=== PATIENT | female | born 1950 | race Caucasian/White ===

== ENCOUNTER 2020-08-07 18:10 | Inpatient (IN) | payer MEDICARE ==
[~2020-08-07] VITALS: Ht 165.1 cm; Wt 59.4 kg
--- NOTE | 2020-08-07 18:49 | PHYS DOC ---
Past Medical History Past Medical History: Depression, High Cholesterol Additional Past Surgical Histo: Breast augmentation Smoking Status: Former Smoker Alcohol Use: Occasionally (wine with dinner) Drug Use: None General Adult EDM: Chief Complaint: HIP PAIN HPI: HPI: 69-year-old female presents via EMS with report of right leg pain after mechanical trip and fall over a "saw ". Patient reports she had her hands up and ended up catching both her feet on the side of the saw causing her to fall onto her right side. Patient reports pain primarily with range of motion of her right hip. Denies head trauma or neck pain. Denies use of blood thinners. Denies other injury or pain. EMS was called to the scene and reports giving 50 mcg of fentanyl along with 4 mg of Zofran prior to arrival. Review of Systems: Review of Systems: Constitutional: Denies fever or chills Eyes: Denies redness or eye pain HENT: Denies nasal congestion or sore throat Respiratory: Denies cough or shortness of breath Cardiovascular: Denies chest pain or palpitations GI: Denies abdominal pain, nausea, or vomiting : Denies dysuria or hematuria Musculoskeletal: Denies back pain; reports right leg pain Integument: Denies rash or skin lesions Neurologic: Denies headache, focal weakness or sensory changes Complete systems were reviewed and found to be within normal limits, except as documented in this note. Physical Exam: PE: Constitutional: Well developed, well nourished, no acute distress, non-toxic appearance HENT: Normocephalic, atraumatic Eyes: PERRL, EOMI, conjunctiva normal, no discharge Neck: Normal range of motion, no midline tenderness, supple Lungs & Thorax: No respiratory distress, equal chest rise and fall Abdomen: Soft, no tenderness; pelvis stable and nontender Skin: Warm, dry, no erythema, no rash Back: No tenderness, no CVA tenderness Extremities: Right trochanteric tenderness and with any ROM of right hip, no deformity, no edema, bilateral DP and PTs +2 Neurologic: Alert and oriented X 3, normal motor function, normal sensory function, no focal deficits noted Psychologic: Affect normal, judgment normal EKG: EKG: @1928 NSR at 78bpm, NO ST elevation, occasional PVC, QRS 100ms, QT/QTc 410 / 471ms Radiology/Procedures: Radiology/Procedures: PROCEDURE: HIP RIGHT 2V WITH PELVIS EXAM: AP pelvis, AP and crosstable lateral views right hip DATE: 08/07/2020 6:50 PM INDICATION: Reason: pain s/p fall / Spl. Instructions: / History: COMPARISON: No Prior FINDINGS/ IMPRESSION: 1. Intertrochanteric fracture of the right hip is nondisplaced. 2. Marked osteopenia. 3. No definite pelvic or left hip fracture is seen. 4. Large volume rectal and colonic stool content and gas limits evaluation of the sacrum. Electronically signed by: Estevan Echevarria MD (08/07/2020 7:46 PM) SHIRLENE PROCEDURE: KNEE RIGHT 3V EXAM: 3 views right knee DATE: 08/07/2020 6:50 PM INDICATION: Reason: pain s/p fall / Spl. Instructions: / History: COMPARISON: No Prior FINDINGS/ IMPRESSION: No evidence of acute fracture or dislocation. Decreased bone mineral density. No joint effusion. Electronically signed by: Estevan Echevarria MD (08/07/2020 7:47 PM) SHIRLENE PROCEDURE: CHEST AP ONLY EXAM: AP View of the chest DATE: 08/07/2020 6:50 PM INDICATION: Reason: perioperative / Spl. Instructions: / History: COMPARISON: No Prior FINDINGS: The heart is not enlarged. Mediastinal and hilar contours are normal. No focal parenchymal airspace opacity. No pleural effusion or pneumothorax. Calcified breast implants are seen. IMPRESSION: 1. No radiographic evidence for acute cardiopulmonary process. Electronically signed by: Estevan Echevarria MD (08/07/2020 7:52 PM) SHIRLENE Course & Med Decision Making: Course & Med Decision Making Pertinent Labs and Imaging studies reviewed. (See chart for details) Patient presents with report of right upper thigh/hip pain status post mechanical fall. Patient neurologically intact. Does not appear in any acute distress. Patient had received 50 mcg of fentanyl and 4 mg of Zofran prior to arrival. No midline cervical spine tenderness. Denies use of blood thinners. X-ray confirmed right intertrochanteric fracture. Perioperative labs obtained and posted to chart. Chest x-ray stable. EKG stable. UA pending. Patient requiring admission for further evaluation and treatment. Discussed with Dr. Mota (hospitalist) who is in agreement with admission. Discussed case with Dr. Chan (orthopedics) who is in agreement with consultation. Discussed findings and plan with patient and family, who acknowledge understanding and agreement. Ellen Disclaimer: Ellen Disclaimer: This electronic medical record was generated, in whole or in part, using a voice recognition dictation system. Departure Departure Impression: Primary Impression: Intertrochanteric fracture of right femur Qualified Codes: S72.144A - Nondisplaced intertrochanteric fracture of right femur, initial encounter for closed fracture Disposition: 09 ADMITTED INPT THIS HOSP Admitting Physician: SHARIF Amezquita) Condition: STABLE IVONNE LOZANO DO Aug 07, 2020 18:49
[2020-08-07 18:55] LABS: BASO % 0 % (0-3); EOS # 0.1 x10^3/uL (0.0-0.7); EOS % 1 % (0-3); HEMATOCRIT 36.1 % (36.0-47.0); HEMOGLOBIN 11.9 g/dL (12.0-15.5); LYMPH # 1.9 x10^3/uL (1.0-4.8); LYMPH % 35 % (24-48); MEAN CORPUSCULAR HEMOGLOBIN 31 pg (25-35); MEAN CORPUSCULAR HGB CONC 33 g/dL (31-37); MEAN CORPUSCULAR VOLUME 93 fL (79-100); MONO # 0.6 x10^3/uL (0.0-1.1); MONO % 11 % (0-9); NEUT # 2.8 x10^3/uL (1.8-7.7); NEUT % 52 % (31-73); PLATELET COUNT 189 x10^3/uL (140-400); RED BLOOD COUNT 3.88 x10^6/uL (3.50-5.40); WHITE BLOOD COUNT 5.4 x10^3/uL (4.0-11.0)
[2020-08-07 19:04] LABS: PROTHROMBIN TIME PATIENT 12.5 SEC (11.7-14.0)
[2020-08-07 19:17] LABS: CALCIUM 9.1 mg/dL (8.5-10.1); CREATININE 0.9 mg/dL (0.6-1.0); GFR 61.7; POTASSIUM 3.8 mmol/L (3.5-5.1)
[2020-08-07 19:23] LABS: ALBUMIN 3.8 g/dL (3.4-5.0); ALBUMIN/GLOBULIN RATIO 1.3 (1.0-1.7); MAGNESIUM 2.3 mg/dL (1.8-2.4); TOTAL BILIRUBIN 0.3 mg/dL (0.2-1.0); TOTAL PROTEIN 6.8 g/dL (6.4-8.2)
[2020-08-07 19:33] LABS: CREATINE KINASE 65 U/L (26-192)
--- NOTE | 2020-08-07 19:49 | RAD ---
EXAM: AP pelvis, AP and crosstable lateral views right hip DATE: 08/07/2020 6:50 PM INDICATION: Reason: pain s/p fall / Spl. Instructions: / History: COMPARISON: No Prior FINDINGS/ IMPRESSION: 1. Intertrochanteric fracture of the right hip is nondisplaced. 2. Marked osteopenia. 3. No definite pelvic or left hip fracture is seen. 4. Large volume rectal and colonic stool content and gas limits evaluation of the sacrum. Electronically signed by: Estevan Echevarria MD (08/07/2020 7:46 PM) SHIRLENE
--- NOTE | 2020-08-07 19:50 | RAD ---
EXAM: 3 views right knee DATE: 08/07/2020 6:50 PM INDICATION: Reason: pain s/p fall / Spl. Instructions: / History: COMPARISON: No Prior FINDINGS/ IMPRESSION: No evidence of acute fracture or dislocation. Decreased bone mineral density. No joint effusion. Electronically signed by: Estevan Echevarria MD (08/07/2020 7:47 PM) SHIRLENE
--- NOTE | 2020-08-07 19:55 | RAD ---
EXAM: AP View of the chest DATE: 08/07/2020 6:50 PM INDICATION: Reason: perioperative / Spl. Instructions: / History: COMPARISON: No Prior FINDINGS: The heart is not enlarged. Mediastinal and hilar contours are normal. No focal parenchymal airspace opacity. No pleural effusion or pneumothorax. Calcified breast implants are seen. IMPRESSION: 1. No radiographic evidence for acute cardiopulmonary process. Electronically signed by: Estevan Echevarria MD (08/07/2020 7:52 PM) SHIRLENE
[2020-08-07 21:58] VITALS: BP 113/22
[2020-08-07] MEDS: fentaNYL PF VIAL 100 MCG/2 ML VIAL IV PRN (22:16)
[2020-08-07] MEDS: ONDANSETRON PF 4 MG/2 ML VIAL. IV PRN (22:17)
[2020-08-07 23:00] VITALS: BP 94/40
[2020-08-08] VITALS (13 sets, daily range): BP systolic 96–134; BP diastolic 38–69
[2020-08-08] MEDS ORDERED: ERGO500089 PO (02:35)
[2020-08-08] MEDS ORDERED: PARO20TA3 PO (02:35)
[2020-08-08] MEDS ORDERED: CRESTOR5 MG PO (02:35)
[2020-08-08] MEDS ORDERED: ONDANSETRON PF 4 MG/2 ML VIAL. ONE (07:22)
[2020-08-08] MEDS ORDERED: LIDOCAINE 2% PF 5 ML VIAL. ONE (07:22)
[2020-08-08] MEDS ORDERED: fentaNYL PF VIAL 100 MCG/2 ML VIAL ONE ×2 (07:22→11:30)
[2020-08-08] MEDS ORDERED: PROPOFOL 10 MG/ML (20ML) VIAL. IV ONE (07:22)
[2020-08-08] MEDS ORDERED: SEVOFLURANE > 120 MINUTES. IH ONE (07:22)
[2020-08-08] MEDS ORDERED: DEXAMETHASONE SOD PHOS 4 MG/ML VIAL ONE (07:22)
--- NOTE | 2020-08-08 07:50 | CONS ---
DATE OF CONSULTATION: 08/07/2020 ORTHOPEDIC EMERGENCY DEPARTMENT CONSULTATION REQUESTING PHYSICIAN: Dr. Hernandez in the [facility]. REASON FOR CONSULTATION: Right hip fracture. HISTORY OF PRESENT ILLNESS: The patient is a 69-year-old female in town from her usual residence of [place] where she is visiting family and tripped over, basically caught her feet on something in the basement, her garage and she fell on to her right side, had immediate onset of pain, deformity. She denies any loss of consciousness or other injury aside from the right hip pain. She was brought in by EMS. PAST MEDICAL HISTORY: Significant for high cholesterol and depression. PAST SURGICAL HISTORY: Breast augmentation. SOCIAL HISTORY: She is accompanied by her , is a former smoker, quit remotely. Occasional use of alcohol, typically has some wine occasionally with dinner. Denies drug use. ALLERGIES: SHE HAS ALLERGIES TO SULFA. MEDICATIONS: List is reviewed. FAMILY HISTORY: Noncontributory. REVIEW OF SYSTEMS: Again, she denies any head injury, loss of consciousness, no other joint injury, neck or back pain, focal weakness, numbness, tingling, radiating pain aside from the pain in the right hip and upper thigh area, worse with movement. PHYSICAL EXAMINATION: GENERAL: This is a pleasant, cooperative 69-year-old female, is at her bedside. HEENT: Atraumatic, normocephalic. MUSCULOSKELETAL: She has no tenderness on palpation over the neck or back. On exam of both upper extremities, she has full range of motion, normal alignment, stability, bilateral shoulders, elbows and wrists and no instability or tenderness on palpation. EXTREMITIES: Examination of lower extremities, right hip is slightly shortened, internally rotated, has some swelling in the upper thigh, tenderness on palpation. Normal examination of the left hip, normal alignment, stability of bilateral knees and ankles with intact motor function, distal pulses, sensation, reflexes, skin in both upper and lower extremities throughout. IMAGING: X-rays show a mildly displaced intertrochanteric fracture of the right hip. IMPRESSION: Right intertrochanteric hip fracture status post fall. TREATMENT PLAN: I had gone over with her and her the immobility related complications of nonoperative treatment of her hip fracture. They recommended operative treatment and the rationale for getting her up and around, avoiding the immobility related complications. We covered risks, benefits, postoperative course of the fixation procedure of her hip, possibility of infection, nonhealing, nerve or blood vessel damage, medical or other anesthetic complications among others, the usual administration of blood thinners postoperatively due to risk of DVT and we talked through her expected weightbearing status, restrictions and some of her issues in terms of traveling back driving to [place]. All her and her 's questions were answered. She wishes to proceed with surgical evaluation and treatment, which is planned for tomorrow morning following hospitalist preoperative evaluation. ALVERTO COLORADO MD DR: MADHURI/claudia JOB#: [id number] / [id number]
[2020-08-08] MEDS ORDERED: FLU VACC QS 2020-21(6MOS+)/PF 0.5 ML SYRINGE. VAX IM ONE (09:00)
[2020-08-08] MEDS ORDERED: PROCHLORPERAZINE 10 MG/2 ML VIAL. IV PRN (09:30)
[2020-08-08] MEDS ORDERED: fentaNYL PF VIAL 100 MCG/2 ML VIAL IV PRN ×2 (09:30)
[2020-08-08] MEDS ORDERED: HYDROmorphone 2 MG/ML VIAL IV PRN (09:30)
[2020-08-08] MEDS ORDERED: MORPHINE SULFATE 2 MG/ML VIAL. IV PRN (09:30)
[2020-08-08] MEDS ORDERED: ONDANSETRON PF 4 MG/2 ML VIAL. IV PRN (09:30)
[2020-08-08] MEDS ORDERED: LIDOCAINE 1% PF 2 ML VIAL. ID PRN (09:30)
[2020-08-08] MEDS ORDERED: ceFAZolin SODIUM IV Push 1 GM VIAL. IVP ONE (09:45)
--- NOTE | 2020-08-08 10:03 | HP ---
ADMIT DATE: 08/08/2020 CHIEF COMPLAINT: Fall with right hip pain. HISTORY OF PRESENT ILLNESS: The patient is a pleasant 69-year-old female, who has been visiting from [place]. Basically, she was helping move one of her family members and then tripped on some equipment that was on the floor. She has right hip pain. We did some imaging. She does have a right hip fracture. She has been admitted. We have consulted Orthopedics. She is going to surgery today. PAST MEDICAL HISTORY: Depression, hypertension, breast augmentation, previous tobacco abuse. ALLERGIES: SULFA. FAMILY HISTORY: Diabetes. SOCIAL HISTORY: She does not drink, smoke or take drugs. MEDICATIONS: Reviewed, please refer to the MRAD. REVIEW OF SYSTEMS: GENERAL: No history of weight change, weakness or fevers. SKIN: No bruising, hair changes or rashes. EYES: No blurred, double or loss of vision. NOSE AND THROAT: No history of nosebleeds, hoarseness or sore throat. HEART: No history of palpitations, chest pain or shortness of breath on exertion. LUNGS: Denies cough, hemoptysis, wheezing or shortness of breath. GASTROINTESTINAL: Denies changes in appetite, nausea, vomiting, diarrhea or constipation. GENITOURINARY: No history of frequency, urgency, hesitancy or nocturia. NEUROLOGIC: Denies history of numbness, tingling, tremor or weakness. PSYCHIATRIC: No history of panic, anxiety or depression. ENDOCRINE: No history of heat or cold intolerance, polyuria or polydipsia. EXTREMITIES: Denies muscle weakness, joint pain, pain on walking or stiffness. PHYSICAL EXAMINATION: VITALS: Within normal limits and are stable. GENERAL: No apparent distress. Alert and oriented. HEENT: Normocephalic atraumatic, external auditory canals are patent. EYES: Extraocular muscles are intact, pupils are equally round and reactive to light and accommodation. MUSCULOSKELETAL: Well developed, well nourished, good range of motion. ENDOCRINE: No thyromegaly was palpated. LYMPHATICS: No cervical chain or axillary nodes were noted. HEMATOPOIETIC: No bruising. NECK: Supple, no JVD, no thyromegaly was noted. LUNGS: Clear to auscultation in all lung lopez without rhonchi or wheezing. HEART: RRR, S1, S2 present. Peripheral pulses intact, no obvious murmurs were noted. ABDOMEN: Soft, nontender. Positive bowel sounds no organomegaly, normal bowel sounds. EXTREMITIES: Without any cyanosis, clubbing, or edema. Pedal pulses intact, Homans sign is negative. The right lower extremity is externally rotated. NEUROLOGIC: Normal speech, normal tone. A & O x 3, moves all extremities, no obvious focal deficits. PSYCHIATRIC: Normal affect, normal mood. Stable. SKIN: No ulcerations or rashes, good skin turgor, no jaundice. VASCULAR: Good capillary refill, neurovascular bundle appears to be intact. LABORATORY DATA: Hematology is normal other than hemoglobin of 11.9. Electrolytes are normal. COVID testing is negative. INR is 1. ASSESSMENT AND PLAN: Fall with right hip fracture. The patient has been admitted. We have consulted Orthopedics. She is going to surgery today. Postoperatively, she is going to need aggressive physical therapy, occupational therapy and wound care and possible jail in a few days. JF JONES DO DR: PAULO/claudia JOB#: [id number] / [id number]
[2020-08-08] MEDS ORDERED: SEVOFLURANE 31 TO 60 MINUTES. IH ONE (10:11)
[2020-08-08] MEDS: IV RINGERS,LACTATED 1000ML 1,000 ML IV SCH ×2 (10:15→11:51)
[2020-08-08] MEDS ORDERED: BUPIVACAINE MPF 0.5% 30 ML VIAL. ONE (10:25)
--- NOTE | 2020-08-08 11:29 | PDOC4 ---
Operative Note Operative Note Date of surgery: 08/08/2020 Preoperative diagnosis: Right intertrochanteric hip fracture Postoperative diagnosis: Same Operative procedure: Operative reduction internal fixation right intertroc hanteric hip fracture with intramedullary nail fixation Surgeon: Rocio Anesthesia: General Estimated blood loss: 100 cc Complications: None Operative indications: Please see my dictated orthopedic consultation for detailed operative indications Operative text: Patient was identified procedure verified patient placed in the supine position on the [place] fracture table. After adequate amounts of general anesthesia were administered the right lower extremity was placed in traction the left leg placed in the well-leg motta all bony prominences were well-padded and the right leg was placed in traction and fracture reduced under fluoroscopic guidance. The right hip was then prepped and draped in the standard sterile fashion and after timeout was performed patient procedure identified and verified an incision was made just proximal to the greater trochanteric entry point. Entry awl was placed at the tip of the greater trochanter and a long guidewire was then advanced entry reamer was placed and an 11 x 180 mm Biomet affixus 130 degree hip fracture nail was advanced a guidewire was placed up the center of the femoral neck drilling carried out to a 105 and a 100 mm lag screw was placed and compression carried out to achieve essentially anatomic reduction. The nail was then locked in place with the integral screw and a distal cortical bone screw was placed in the static hole and all hardware and fracture reduction checked under multiple fluoroscopic views. Thorough irrigation carried out normal saline solution fascia was closed with #1 Vicryl suture in a running fashion subcutaneous closure using buried Vicryl suture subcuticular closure with buried Monocryl Steri-Strips and Mastisol sterile dressings were applied patient was returned to recovery room in stable condition having tolerated the procedure well ALVERTO COLORADO MD Aug 08, 2020 11:29
[2020-08-08] MEDS ORDERED: DEXTROSE 50% 25 GM / 50ML DISP.SYRIN. IV PRN (11:30)
[2020-08-08] MEDS ORDERED: POLYETHYLENE GLYCOL 3350 17 GM PACKET. PO PRN (11:30)
[2020-08-08] MEDS ORDERED: oxyCODONE IR 5 MG TABLET PO PRN (11:30)
[2020-08-08] MEDS ORDERED: MORPHINE SULFATE 2 MG/ML VIAL. IVP PRN (11:30)
[2020-08-08] MEDS ORDERED: fentaNYL PF VIAL 100 MCG/2 ML VIAL IVP PRN (11:30)
[2020-08-08] MEDS ORDERED: ONDANSETRON PF 4 MG/2 ML VIAL. IVP PRN (11:30)
[2020-08-08] MEDS: fentaNYL PF VIAL 100 MCG/2 ML VIAL IV PRN ×2 (11:33→11:52)
[2020-08-08] MEDS: HYDROcodone/APAP 7.5/325MG 1 TAB TABLET PO PRN ×3 (12:42→20:56)
[2020-08-08] MEDS: PARoxetine 20 MG TABLET PO SCH (12:43)
[2020-08-08] MEDS: ONDANSETRON PF 4 MG/2 ML VIAL. IV PRN (12:43)
[2020-08-08] MEDS: ceFAZolin SODIUM IV Push 1 GM VIAL. IVP SCH ×2 (17:24→20:56)
--- NOTE | 2020-08-08 17:39 | EKG ---
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
[2020-08-08] MEDS: APIXABAN 2.5 MG TABLET. PO SCH (20:55)
[2020-08-08] MEDS: ATORVASTATIN CALCIUM 10 MG TABLET. PO SCH (20:55)
[2020-08-09 03:11] VITALS: BP 98/46
[2020-08-09] MEDS: ceFAZolin SODIUM IV Push 1 GM VIAL. IVP SCH (03:40)
[2020-08-09] MEDS ORDERED: MAGNESIUM HYDROXIDE 2,400 MG/30 ML ORAL.SUSP. PO PRN (06:00)
[2020-08-09 07:00] VITALS: BP 95/40
[2020-08-09] MEDS: PARoxetine 20 MG TABLET PO SCH (08:55)
[2020-08-09] MEDS: APIXABAN 2.5 MG TABLET. PO SCH ×2 (08:55→21:35)
[2020-08-09] MEDS: SENNOSIDES/DOCUSATE 8.6/50MG TABLET. PO SCH (08:55)
[2020-08-09] MEDS: HYDROcodone/APAP 7.5/325MG 1 TAB TABLET PO PRN ×2 (08:56→18:29)
--- NOTE | 2020-08-09 10:19 | PDOC ---
PROGRESS NOTES Date of Service DATE: 08/09/20 TIME: 10:10 Subjective Subjective Problems overnight: Pain is better after surgery than before. She has a difficult time moving the hip Objective Vital Signs Vital Signs Date Time Temp Pulse Resp B/P (MAP) Pulse Ox O2 Delivery O2 Flow Rate FiO2 08/09/20 08:56 Room Air 08/09/20 07:00 98.4 80 16 95/40 (58) 94 98.4 08/08/20 20:00 2.0 Physical Exam Hip dressing clean dry intact distal neurovascular status intact she has no pain on movement or weightbearing through an extended right lower extremity Labs Laboratory Tests Test 08/07/20 18:20 08/08/20 07:55 White Blood Count 5.4 x10^3/uL (4.0-11.0) Red Blood Count 3.88 x10^6/uL (3.50-5.40) Hemoglobin 11.9 g/dL (12.0-15.5) Hematocrit 36.1 % (36.0-47.0) Mean Corpuscular Volume 93 fL (79-100) Mean Corpuscular Hemoglobin 31 pg (25-35) Mean Corpuscular Hemoglobin Concent 33 g/dL (31-37) Red Cell Distribution Width 14.0 % (11.5-14.5) Platelet Count 189 x10^3/uL (140-400) Neutrophils (%) (Auto) 52 % (31-73) Lymphocytes (%) (Auto) 35 % (24-48) Monocytes (%) (Auto) 11 % (0-9) Eosinophils (%) (Auto) 1 % (0-3) Basophils (%) (Auto) 0 % (0-3) Neutrophils # (Auto) 2.8 x10^3/uL (1.8-7.7) Lymphocytes # (Auto) 1.9 x10^3/uL (1.0-4.8) Monocytes # (Auto) 0.6 x10^3/uL (0.0-1.1) Eosinophils # (Auto) 0.1 x10^3/uL (0.0-0.7) Basophils # (Auto) 0.0 x10^3/uL (0.0-0.2) Prothrombin Time 12.5 SEC (11.7-14.0) Prothromb Time International Ratio 1.0 (0.8-1.1) Activated Partial Thromboplast Time 29 SEC (24-38) Sodium Level 140 mmol/L (136-145) Potassium Level 3.8 mmol/L (3.5-5.1) Chloride Level 105 mmol/L (98-107) Carbon Dioxide Level 29 mmol/L (21-32) Anion Gap 6 (6-14) Blood Urea Nitrogen 18 mg/dL (7-20) Creatinine 0.9 mg/dL (0.6-1.0) Estimated GFR (Cockcroft-Gault) 61.7 BUN/Creatinine Ratio 20 (6-20) Glucose Level 96 mg/dL (70-99) Calcium Level 9.1 mg/dL (8.5-10.1) Magnesium Level 2.3 mg/dL (1.8-2.4) Total Bilirubin 0.3 mg/dL (0.2-1.0) Aspartate Amino Transf (AST/SGOT) 33 U/L (15-37) Alanine Aminotransferase (ALT/SGPT) 31 U/L (14-59) Alkaline Phosphatase 64 U/L (46-116) Creatine Kinase 65 U/L (26-192) Creatine Kinase MB (Mass) 0.5 ng/mL (0.0-3.6) Creatine Kinase MB Relative Index % (0-4) Troponin I Quantitative < 0.017 ng/mL (0.000-0.055) Total Protein 6.8 g/dL (6.4-8.2) Albumin 3.8 g/dL (3.4-5.0) Albumin/Globulin Ratio 1.3 (1.0-1.7) Coronavirus (PCR) Not detected (Not Detected) SARS-CoV-2 Antigen (Rapid) Negative (NEGATIVE) Imaging Intraoperative views show anatomic reduction intertrochanteric hip fracture with intramedullary fixation Assessment Assessment POD#1 ORIF right hip fracture Plan Plan of Care I went over with her that the hip would be sore and a bit limited just to her muscles and swelling. Nevertheless she can weight-bear as tolerated and I encouraged her to get up and around as much as possible to limit immobility related concerns. She is from out of town in [place] and as a result to minimize follow-up concerns I used absorbable suture and Steri-Strips which do not have to be taken out. In addition she is on Eliquis 2.5 mg p.o. twice daily which I would recommend continuing for 6 weeks for DVT prophylaxis Other than that follow-up can occur locally for her in [place] with orthopedics in perhaps 3 weeks Justicifation of Admission Dx: Justifications for Admission: Justification of Admission Dx: Yes (Follow-up fixation right hip fracture for physical therapy and discharge planning) ALVERTO COLORADO MD Aug 09, 2020 10:19
--- NOTE | 2020-08-09 10:56 | PDOC ---
[facility] PROGRESS NOTE Date of Service DOS: DATE: 08/09/20 TIME: 10:55 Chief Complaint Chief Complaint Postop day 1 right hip fracture repair Depression, hypertension, breast augmentation, previous tobacco abuse. History of Present Illness History of Present Illness 08/09/2020 Patient seen and examined Her right hip has clean dry intact dressing Discussed with RN Chart review Vitals/I&O Vitals/I&O: Vital Signs Date Time Temp Pulse Resp B/P (MAP) Pulse Ox O2 Delivery O2 Flow Rate FiO2 08/09/20 08:56 Room Air 08/09/20 07:00 98.4 80 16 95/40 (58) 94 98.4 08/08/20 20:00 2.0 I & O 08/08/20 08/08/20 08/09/20 15:00 23:00 07:00 Intake Total 180 ml 1700 ml 200 ml Output Total 400 ml 750 ml Balance -220 ml 1700 ml -550 ml Physical Exam General: Alert Heart: Regular rate Lungs: Clear Abdomen: Normal bowel sounds Extremities: Other (Right hip with clean dry intact dressing) Skin: No rashes Assessment and Plan Assessmemt and Plan Problems Medical Problems: (1) Intertrochanteric fracture of right femur Status: Acute Postop day 1 right hip fracture repair Depression, hypertension, breast augmentation, previous tobacco abuse. Plan Wound care Trend labs As needed pain meds Home meds DVT prophylaxis Full code She might need correction? (She is from [place]) Comment Review of Relevant I have reviewed the following items kelli (where applicable) has been applied. Medications: Current Medications Medications (Trade) Dose Ordered Sig/Cheko Route PRN Reason Start Time Stop Time Status Last Admin Dose Admin Atorvastatin Calcium (Lipitor) 10 mg QHS PO 08/08/20 21:00 08/08/20 20:55 Senna/Docusate Sodium (Senna Plus) 1 tab DAILY PO 08/09/20 09:00 08/09/20 08:55 Acetaminophen/ Hydrocodone Bitart (Lortab 7.5/325) 1 tab PRN Q4HRS PRN PO PAIN 08/08/20 11:30 08/09/20 08:56 Cefazolin Sodium (Ancef) 1 gm Q6H IVP 08/08/20 16:00 08/09/20 04:01 DC 08/09/20 03:40 Apixaban (Eliquis) 2.5 mg BID PO 08/08/20 21:00 08/13/20 12:00 08/09/20 08:55 Justifications for Admission Other Justification JF JONES III DO Aug 09, 2020 10:56
[2020-08-09 11:00] VITALS: BP 113/52
[2020-08-09 14:07] LABS: HEMATOCRIT 26.5 % (36.0-47.0); HEMOGLOBIN 8.8 g/dL (12.0-15.5)
[2020-08-09 15:00] VITALS: BP_SYST 101; BP_SYST 122; BP_DIAS 60; BP_DIAS 62
[2020-08-09] MEDS ORDERED: BISACODYL 10 MG SUPP.RECT. PR PRN (16:00)
[2020-08-09 19:35] VITALS: BP 102/38
[2020-08-09] MEDS: ATORVASTATIN CALCIUM 10 MG TABLET. PO SCH (21:35)
[2020-08-09 22:40] VITALS: BP 96/37
[2020-08-10 03:40] VITALS: BP 103/49
[2020-08-10 07:00] VITALS: BP 110/44
[2020-08-10] MEDS: HYDROcodone/APAP 7.5/325MG 1 TAB TABLET PO PRN ×2 (08:14→21:16)
[2020-08-10] MEDS: APIXABAN 2.5 MG TABLET. PO SCH ×2 (08:15→21:00)
[2020-08-10] MEDS: PARoxetine 20 MG TABLET PO SCH (08:15)
[2020-08-10] MEDS: SENNOSIDES/DOCUSATE 8.6/50MG TABLET. PO SCH (08:19)
[2020-08-10 08:27] LABS: BASO % 1 % (0-3); EOS # 0.2 x10^3/uL (0.0-0.7); EOS % 3 % (0-3); HEMATOCRIT 26.1 % (36.0-47.0); HEMOGLOBIN 8.8 g/dL (12.0-15.5); LYMPH # 1.2 x10^3/uL (1.0-4.8); LYMPH % 19 % (24-48); MEAN CORPUSCULAR HEMOGLOBIN 31 pg (25-35); MEAN CORPUSCULAR HGB CONC 34 g/dL (31-37); MEAN CORPUSCULAR VOLUME 93 fL (79-100); MONO # 0.8 x10^3/uL (0.0-1.1); MONO % 13 % (0-9); NEUT # 4.1 x10^3/uL (1.8-7.7); NEUT % 65 % (31-73); PLATELET COUNT 125 x10^3/uL (140-400); RED BLOOD COUNT 2.81 x10^6/uL (3.50-5.40); RED CELL DISTRIBUTION WIDTH 13.8 % (11.5-14.5); WHITE BLOOD COUNT 6.3 x10^3/uL (4.0-11.0)
[2020-08-10 08:49] LABS: CALCIUM 7.7 mg/dL (8.5-10.1); CREATININE 0.6 mg/dL (0.6-1.0); GFR 98.5; POTASSIUM 3.9 mmol/L (3.5-5.1)
--- NOTE | 2020-08-10 09:30 | PDOC ---
PROGRESS NOTES Date of Service DATE: 08/10/20 TIME: 09:28 Subjective Subjective Problems overnight: Pain is reasonably controlled she feels that the right hip area feels tight Objective Vital Signs Vital Signs Date Time Temp Pulse Resp B/P (MAP) Pulse Ox O2 Delivery O2 Flow Rate FiO2 08/10/20 08:14 Room Air 08/10/20 07:00 99.2 87 20 110/44 (66) 94 99.2 08/08/20 20:00 2.0 Physical Exam Leg lengths equal good alignment distal neurovascular status intact dressing clean dry intact Labs Laboratory Tests Test 08/09/20 13:35 08/10/20 06:55 Hemoglobin 8.8 g/dL (12.0-15.5) Hematocrit 26.5 % (36.0-47.0) Mean Corpuscular Hemoglobin Concent 33 g/dL (31-37) Sodium Level 141 mmol/L (136-145) Potassium Level 3.9 mmol/L (3.5-5.1) Chloride Level 107 mmol/L (98-107) Carbon Dioxide Level 26 mmol/L (21-32) Anion Gap 8 (6-14) Blood Urea Nitrogen 10 mg/dL (7-20) Creatinine 0.6 mg/dL (0.6-1.0) Estimated GFR (Cockcroft-Gault) 98.5 Glucose Level 98 mg/dL (70-99) Calcium Level 7.7 mg/dL (8.5-10.1) Laboratory Tests Test 08/09/20 13:35 08/10/20 06:55 Hemoglobin 8.8 g/dL (12.0-15.5) Hematocrit 26.5 % (36.0-47.0) Mean Corpuscular Hemoglobin Concent 33 g/dL (31-37) Sodium Level 141 mmol/L (136-145) Potassium Level 3.9 mmol/L (3.5-5.1) Chloride Level 107 mmol/L (98-107) Carbon Dioxide Level 26 mmol/L (21-32) Anion Gap 8 (6-14) Blood Urea Nitrogen 10 mg/dL (7-20) Creatinine 0.6 mg/dL (0.6-1.0) Estimated GFR (Cockcroft-Gault) 98.5 Glucose Level 98 mg/dL (70-99) Calcium Level 7.7 mg/dL (8.5-10.1) Assessment Assessment POD#2 ORIF right intertrochanteric hip fracture Plan Plan of Care Continue mobilize with physical therapy weightbearing as tolerated no restricti ons or hip precautions Eliquis 2.5 mg p.o. twice daily for anticoagulation Stable from an orthopedic standpoint, plan follow-up in about 3 weeks in [place] which is their home Justicifation of Admission Dx: Justifications for Admission: Justification of Admission Dx: N/A ALVERTO COLORADO MD Aug 10, 2020 09:30
[2020-08-10 11:00] VITALS: BP 86/38
--- NOTE | 2020-08-10 12:25 | PDOC ---
[facility] PROGRESS NOTE Date of Service DOS: DATE: 08/10/20 TIME: 12:23 Chief Complaint Chief Complaint Postop day 2 right hip fracture repair after fall with hip fracture Depression, hypertension, breast augmentation, previous tobacco abuse. History of Present Illness History of Present Illness 08/10/2020 Patient seen and examined She has less pain today present Discussed with RN Chart reviewed Patient would like to go home with home health tomorrow if possible? (They are from [place]) 08/09/2020 Patient seen and examined Her right hip has clean dry intact dressing Discussed with RN Chart review Vitals/I&O Vitals/I&O: Vital Signs Date Time Temp Pulse Resp B/P (MAP) Pulse Ox O2 Delivery O2 Flow Rate FiO2 08/10/20 11:00 99.1 74 20 86/38 (54) 97 Room Air 99.1 I & O 08/09/20 08/09/20 08/10/20 15:00 23:00 07:00 Intake Total 240 ml 100 ml Output Total 600 ml Balance 240 ml -500 ml Physical Exam General: Alert Heart: Regular rate Lungs: Clear Abdomen: Normal bowel sounds Extremities: Other (Right hip with clean dry intact dressing) Skin: No rashes Labs Labs: Laboratory Tests Test 08/09/20 13:35 08/10/20 06:55 Hemoglobin 8.8 g/dL (12.0-15.5) 8.8 g/dL (12.0-15.5) Hematocrit 26.5 % (36.0-47.0) 26.1 % (36.0-47.0) Mean Corpuscular Hemoglobin Concent 33 g/dL (31-37) 34 g/dL (31-37) White Blood Count 6.3 x10^3/uL (4.0-11.0) Red Blood Count 2.81 x10^6/uL (3.50-5.40) Mean Corpuscular Volume 93 fL (79-100) Mean Corpuscular Hemoglobin 31 pg (25-35) Red Cell Distribution Width 13.8 % (11.5-14.5) Platelet Count 125 x10^3/uL (140-400) Neutrophils (%) (Auto) 65 % (31-73) Lymphocytes (%) (Auto) 19 % (24-48) Monocytes (%) (Auto) 13 % (0-9) Eosinophils (%) (Auto) 3 % (0-3) Basophils (%) (Auto) 1 % (0-3) Neutrophils # (Auto) 4.1 x10^3/uL (1.8-7.7) Lymphocytes # (Auto) 1.2 x10^3/uL (1.0-4.8) Monocytes # (Auto) 0.8 x10^3/uL (0.0-1.1) Eosinophils # (Auto) 0.2 x10^3/uL (0.0-0.7) Basophils # (Auto) 0.0 x10^3/uL (0.0-0.2) Sodium Level 141 mmol/L (136-145) Potassium Level 3.9 mmol/L (3.5-5.1) Chloride Level 107 mmol/L (98-107) Carbon Dioxide Level 26 mmol/L (21-32) Anion Gap 8 (6-14) Blood Urea Nitrogen 10 mg/dL (7-20) Creatinine 0.6 mg/dL (0.6-1.0) Estimated GFR (Cockcroft-Gault) 98.5 Glucose Level 98 mg/dL (70-99) Calcium Level 7.7 mg/dL (8.5-10.1) Assessment and Plan Assessmemt and Plan Problems Medical Problems: (1) Intertrochanteric fracture of right femur Status: Acute Postop day 1 right hip fracture repair after fall with hip fracture Depression, hypertension, breast augmentation, previous tobacco abuse. Plan Patient would like to go home with home health tomorrow if possible? (They are from [place]) For now continue the following; Wound care Trend labs As needed pain meds Home meds DVT prophylaxis Full code She might need [place] [facility]? (She is from [place]) Comment Review of Relevant I have reviewed the following items kelli (where applicable) has been applied. Justifications for Admission Other Justification JF JONES III DO Aug 10, 2020 12:25
[2020-08-10 15:00] VITALS: BP 97/50
[2020-08-10 19:00] VITALS: BP 108/54
[2020-08-10] MEDS: ATORVASTATIN CALCIUM 10 MG TABLET. PO SCH (21:00)
[2020-08-10 23:37] VITALS: BP 104/39
[2020-08-11 03:00] VITALS: BP 120/51
[2020-08-11 07:00] VITALS: BP 112/56
[2020-08-11 07:58] LABS: BASO % 0 % (0-3); EOS # 0.2 x10^3/uL (0.0-0.7); EOS % 4 % (0-3); HEMATOCRIT 27.1 % (36.0-47.0); HEMOGLOBIN 9.1 g/dL (12.0-15.5); LYMPH # 1.2 x10^3/uL (1.0-4.8); LYMPH % 21 % (24-48); MEAN CORPUSCULAR HEMOGLOBIN 31 pg (25-35); MEAN CORPUSCULAR HGB CONC 34 g/dL (31-37); MEAN CORPUSCULAR VOLUME 92 fL (79-100); MONO # 0.7 x10^3/uL (0.0-1.1); MONO % 13 % (0-9); NEUT # 3.6 x10^3/uL (1.8-7.7); NEUT % 62 % (31-73); PLATELET COUNT 145 x10^3/uL (140-400); RED BLOOD COUNT 2.93 x10^6/uL (3.50-5.40); RED CELL DISTRIBUTION WIDTH 13.4 % (11.5-14.5); WHITE BLOOD COUNT 5.9 x10^3/uL (4.0-11.0)
[2020-08-11 08:05] LABS: CALCIUM 7.9 mg/dL (8.5-10.1); CREATININE 0.8 mg/dL (0.6-1.0); GFR 70.7; POTASSIUM 3.9 mmol/L (3.5-5.1)
[2020-08-11] MEDS: APIXABAN 2.5 MG TABLET. PO SCH ×2 (08:52→21:46)
[2020-08-11] MEDS: SENNOSIDES/DOCUSATE 8.6/50MG TABLET. PO SCH (08:52)
[2020-08-11] MEDS: PARoxetine 20 MG TABLET PO SCH (08:53)
[2020-08-11 11:00] VITALS: BP 110/50
[2020-08-11 15:00] VITALS: BP 99/33
[2020-08-11 19:00] VITALS: BP 96/46
--- NOTE | 2020-08-11 19:15 | PDOC ---
PROGRESS NOTES Date of Service: DATE: 08/11/20 TIME: 18:57 Chief Complaint Chief Complaint Postop day 3 right hip fracture repair after fall with hip fracture Depression, hypertension, breast augmentation, previous tobacco abuse. History of Present Illness History of Present Illness 08/11/2020 No acute events reported overnight, case discussed with nursing staff patient in no acute distress no complaints during my visit We will arrange for discharge in the a.m. Physical therapy working on the possible obstacles at home 08/10/2020 Patient seen and examined She has less pain today present Discussed with RN Chart reviewed Patient would like to go home with home health tomorrow if possible? (They are from [place]) 08/09/2020 Patient seen and examined Her right hip has clean dry intact dressing Discussed with RN Chart review Vitals Vitals Vital Signs Date Time Temp Pulse Resp B/P (MAP) Pulse Ox O2 Delivery O2 Flow Rate FiO2 08/11/20 15:00 98.5 93 18 99/33 (55) 99 Room Air 98.5 08/11/20 08:15 2.0 Physical Exam General: Alert Heart: Regular rate Lungs: Clear Abdomen: Normal bowel sounds Extremities: Other (Right hip with clean dry intact dressing) Skin: No rashes Labs LABS Laboratory Tests Test 08/11/20 06:45 White Blood Count 5.9 x10^3/uL (4.0-11.0) Red Blood Count 2.93 x10^6/uL (3.50-5.40) Hemoglobin 9.1 g/dL (12.0-15.5) Hematocrit 27.1 % (36.0-47.0) Mean Corpuscular Volume 92 fL (79-100) Mean Corpuscular Hemoglobin 31 pg (25-35) Mean Corpuscular Hemoglobin Concent 34 g/dL (31-37) Red Cell Distribution Width 13.4 % (11.5-14.5) Platelet Count 145 x10^3/uL (140-400) Neutrophils (%) (Auto) 62 % (31-73) Lymphocytes (%) (Auto) 21 % (24-48) Monocytes (%) (Auto) 13 % (0-9) Eosinophils (%) (Auto) 4 % (0-3) Basophils (%) (Auto) 0 % (0-3) Neutrophils # (Auto) 3.6 x10^3/uL (1.8-7.7) Lymphocytes # (Auto) 1.2 x10^3/uL (1.0-4.8) Monocytes # (Auto) 0.7 x10^3/uL (0.0-1.1) Eosinophils # (Auto) 0.2 x10^3/uL (0.0-0.7) Basophils # (Auto) 0.0 x10^3/uL (0.0-0.2) Sodium Level 142 mmol/L (136-145) Potassium Level 3.9 mmol/L (3.5-5.1) Chloride Level 106 mmol/L (98-107) Carbon Dioxide Level 27 mmol/L (21-32) Anion Gap 9 (6-14) Blood Urea Nitrogen 8 mg/dL (7-20) Creatinine 0.8 mg/dL (0.6-1.0) Estimated GFR (Cockcroft-Gault) 70.7 Glucose Level 94 mg/dL (70-99) Calcium Level 7.9 mg/dL (8.5-10.1) Review of Systems Review of Systems Review of systems pertinent as per HPI otherwise 14 point review of system is negative Assessment and Plan Assessmemt and Plan Problems Medical Problems: (1) Intertrochanteric fracture of right femur Status: Acute Comment Review of Relevant I have reviewed the following items kelli (where applicable) has been applied. Labs Laboratory Tests Test 08/10/20 06:55 08/11/20 06:45 White Blood Count 6.3 x10^3/uL (4.0-11.0) 5.9 x10^3/uL (4.0-11.0) Red Blood Count 2.81 x10^6/uL (3.50-5.40) 2.93 x10^6/uL (3.50-5.40) Hemoglobin 8.8 g/dL (12.0-15.5) 9.1 g/dL (12.0-15.5) Hematocrit 26.1 % (36.0-47.0) 27.1 % (36.0-47.0) Mean Corpuscular Volume 93 fL (79-100) 92 fL (79-100) Mean Corpuscular Hemoglobin 31 pg (25-35) 31 pg (25-35) Mean Corpuscular Hemoglobin Concent 34 g/dL (31-37) 34 g/dL (31-37) Red Cell Distribution Width 13.8 % (11.5-14.5) 13.4 % (11.5-14.5) Platelet Count 125 x10^3/uL (140-400) 145 x10^3/uL (140-400) Neutrophils (%) (Auto) 65 % (31-73) 62 % (31-73) Lymphocytes (%) (Auto) 19 % (24-48) 21 % (24-48) Monocytes (%) (Auto) 13 % (0-9) 13 % (0-9) Eosinophils (%) (Auto) 3 % (0-3) 4 % (0-3) Basophils (%) (Auto) 1 % (0-3) 0 % (0-3) Neutrophils # (Auto) 4.1 x10^3/uL (1.8-7.7) 3.6 x10^3/uL (1.8-7.7) Lymphocytes # (Auto) 1.2 x10^3/uL (1.0-4.8) 1.2 x10^3/uL (1.0-4.8) Monocytes # (Auto) 0.8 x10^3/uL (0.0-1.1) 0.7 x10^3/uL (0.0-1.1) Eosinophils # (Auto) 0.2 x10^3/uL (0.0-0.7) 0.2 x10^3/uL (0.0-0.7) Basophils # (Auto) 0.0 x10^3/uL (0.0-0.2) 0.0 x10^3/uL (0.0-0.2) Sodium Level 141 mmol/L (136-145) 142 mmol/L (136-145) Potassium Level 3.9 mmol/L (3.5-5.1) 3.9 mmol/L (3.5-5.1) Chloride Level 107 mmol/L (98-107) 106 mmol/L (98-107) Carbon Dioxide Level 26 mmol/L (21-32) 27 mmol/L (21-32) Anion Gap 8 (6-14) 9 (6-14) Blood Urea Nitrogen 10 mg/dL (7-20) 8 mg/dL (7-20) Creatinine 0.6 mg/dL (0.6-1.0) 0.8 mg/dL (0.6-1.0) Estimated GFR (Cockcroft-Gault) 98.5 70.7 Glucose Level 98 mg/dL (70-99) 94 mg/dL (70-99) Calcium Level 7.7 mg/dL (8.5-10.1) 7.9 mg/dL (8.5-10.1) Laboratory Tests Test 08/11/20 06:45 White Blood Count 5.9 x10^3/uL (4.0-11.0) Red Blood Count 2.93 x10^6/uL (3.50-5.40) Hemoglobin 9.1 g/dL (12.0-15.5) Hematocrit 27.1 % (36.0-47.0) Mean Corpuscular Volume 92 fL (79-100) Mean Corpuscular Hemoglobin 31 pg (25-35) Mean Corpuscular Hemoglobin Concent 34 g/dL (31-37) Red Cell Distribution Width 13.4 % (11.5-14.5) Platelet Count 145 x10^3/uL (140-400) Neutrophils (%) (Auto) 62 % (31-73) Lymphocytes (%) (Auto) 21 % (24-48) Monocytes (%) (Auto) 13 % (0-9) Eosinophils (%) (Auto) 4 % (0-3) Basophils (%) (Auto) 0 % (0-3) Neutrophils # (Auto) 3.6 x10^3/uL (1.8-7.7) Lymphocytes # (Auto) 1.2 x10^3/uL (1.0-4.8) Monocytes # (Auto) 0.7 x10^3/uL (0.0-1.1) Eosinophils # (Auto) 0.2 x10^3/uL (0.0-0.7) Basophils # (Auto) 0.0 x10^3/uL (0.0-0.2) Sodium Level 142 mmol/L (136-145) Potassium Level 3.9 mmol/L (3.5-5.1) Chloride Level 106 mmol/L (98-107) Carbon Dioxide Level 27 mmol/L (21-32) Anion Gap 9 (6-14) Blood Urea Nitrogen 8 mg/dL (7-20) Creatinine 0.8 mg/dL (0.6-1.0) Estimated GFR (Cockcroft-Gault) 70.7 Glucose Level 94 mg/dL (70-99) Calcium Level 7.9 mg/dL (8.5-10.1) Medications Current Medications Ondansetron HCl (Zofran) 4 mg PRN Q8HRS PRN IV NAUSEA/VOMITING Last administered on 08/08/20at 12:43; Start 08/07/20 at 19:00; Stop 08/08/20 at 18:59; Status DC Fentanyl Citrate (Fentanyl 2ml Vial) 50 mcg PRN Q2HR PRN IV PAIN Last administered on 08/08/20at 11:52; Start 08/07/20 at 19:00; Stop 08/09/20 at 11:59; Status DC Paroxetine HCl (Paxil) 20 mg DAILY PO Last administered on 08/11/20at 08:53; Start 08/08/20 at 09:00 Atorvastatin Calcium (Lipitor) 10 mg QHS PO Last administered on 08/10/20at 21:00; Start 08/08/20 at 21:00 Influenza Virus Vaccine Quadrival (Fluzone Quad Syringe) 0.5 ml ONCE ONCE VAX IM ; Start 08/08/20 at 09:00; Stop 08/08/20 at 09:01; Status DC Sevoflurane (Ultane) 90 ml STK-MED ONCE IH ; Start 08/08/20 at 07:22; Stop 08/08/20 at 07:22; Status DC Propofol (Diprivan) 200 mg STK-MED ONCE IV ; Start 08/08/20 at 07:22; Stop 08/08/20 at 07:22; Status DC Dexamethasone Sodium Phosphate (Decadron) 4 mg STK-MED ONCE .ROUTE ; Start 08/08/20 at 07:22; Stop 08/08/20 at 07:22; Status DC Lidocaine HCl (Lidocaine Pf 2% Vial) 5 ml STK-MED ONCE .ROUTE ; Start 08/08/20 at 07:22; Stop 08/08/20 at 07:22; Status DC Ondansetron HCl (Zofran) 4 mg STK-MED ONCE .ROUTE ; Start 08/08/20 at 07:22; S top 08/08/20 at 07:22; Status DC Fentanyl Citrate (Fentanyl 2ml Vial) 100 mcg STK-MED ONCE .ROUTE ; Start 08/08/20 at 07:22; Stop 08/08/20 at 07:23; Status DC Ondansetron HCl (Zofran) 4 mg PRN Q6HRS PRN IV NAUSEA/VOMITING; Start 08/08/20 at 09:30; Stop 08/09/20 at 09:29; Status DC Fentanyl Citrate (Fentanyl 2ml Vial) 25 mcg PRN Q5MIN PRN IV MILD PAIN 1-3; Start 08/08/20 at 09:30; Stop 08/09/20 at 09:29; Status DC Fentanyl Citrate (Fentanyl 2ml Vial) 50 mcg PRN Q5MIN PRN IV MODERATE TO SEVERE PAIN; Start 08/08/20 at 09:30; Stop 08/09/20 at 09:29; Status DC Morphine Sulfate (Morphine Sulfate) 1 mg PRN Q10MIN PRN IV SEVERE PAIN 7-10; S tart 08/08/20 at 09:30; Stop 08/09/20 at 09:29; Status DC Ringer's Solution 1,000 ml @ 30 mls/hr Q24H IV Last administered on 08/08/20at 11:51; Start 08/08/20 at 09:30; Stop 08/08/20 at 21:29; Status DC Lidocaine HCl (Xylocaine-Mpf 1% 2ml Vial) 2 ml PRN 1X PRN ID PRIOR TO IV START; Start 08/08/20 at 09:30; Stop 08/09/20 at 09:29; Status DC Hydromorphone HCl (Dilaudid) 0.5 mg PRN Q10MIN PRN IV SEV PAIN, Second choice; Start 08/08/20 at 09:30; Stop 08/09/20 at 09:29; Status DC Prochlorperazine Edisylate (Compazine) 5 mg PACU PRN PRN IV NAUSEA, MRX1; Start 08/08/20 at 09:30; Stop 08/09/20 at 09:29; Status DC Cefazolin Sodium (Ancef) 1 gm STK-MED ONCE IVP ; Start 08/08/20 at 09:45; Stop 08/08/20 at 09:45; Status DC Sevoflurane (Ultane) 30 ml STK-MED ONCE IH ; Start 08/08/20 at 10:11; Stop 08/08/20 at 10:12; Status DC Bupivacaine HCl (Sensorcaine Mpf 0.5%) 30 ml STK-MED ONCE .ROUTE Last admin istered on 08/08/20at 10:28; Start 08/08/20 at 10:25; Stop 08/08/20 at 10:25; Status DC Fentanyl Citrate (Fentanyl 2ml Vial) 100 mcg STK-MED ONCE .ROUTE ; Start 08/08/20 at 11:30; Stop 08/08/20 at 11:30; Status DC Oxycodone HCl (Roxicodone) 5 mg PRN Q3HRS PRN PO SEVERE PAIN; Start 08/08/20 at 11:30 Morphine Sulfate (Morphine Sulfate) 2 mg PRN Q1HR PRN IVP SEVERE PAIN 7-10; Start 08/08/20 at 11:30 Fentanyl Citrate (Fentanyl 2ml Vial) 25 mcg PRN Q1HR PRN IVP SEVERE PAIN 7-10; Start 08/08/20 at 11:30 Senna/Docusate Sodium (Senna Plus) 1 tab DAILY PO Last administered on 08/11/20at 08:52; Start 08/09/20 at 09:00 Polyethylene Glycol (miraLAX PACKET) 17 gm PRN DAILY PRN PO CONSTIPATION; Start 08/08/20 at 11:30 Ondansetron HCl (Zofran) 4 mg PRN Q4HRS PRN IVP NAUSEA/VOMITING; Start 08/08/20 at 11:30 Magnesium Hydroxide (Milk Of Magnesia) 2,400 mg 1X PRN PRN PO CONSTIPATION; Start 08/09/20 at 06:00; Stop 08/10/20 at 06:00; Status DC Bisacodyl (Dulcolax Supp) 10 mg 1X PRN PRN OR CONSTIPATION; Start 08/09/20 at 16:00; Stop 08/10/20 at 15:59; Status DC Acetaminophen/ Hydrocodone Bitart (Lortab 7.5/325) 1 tab PRN Q4HRS PRN PO MODERATE PAIN Last administered on 08/10/20at 21:16; Start 08/08/20 at 11:30 Dextrose (Dextrose 50%-Water Syringe) 12.5 gm PRN Q15MIN PRN IV SEE COMMENTS; Start 08/08/20 at 11:30 Cefazolin Sodium (Ancef) 1 gm Q6H IVP Last administered on 08/09/20at 03:40; Start 08/08/20 at 16:00; Stop 08/09/20 at 04:01; Status DC Apixaban (Eliquis) 2.5 mg BID PO Last administered on 08/11/20at 08:52; Start 08/08/20 at 21:00 Active Scripts Active Reported Crestor (Rosuvastatin Calcium) 5 Mg Tablet 0.5 Tab PO DAILY Paroxetine Hcl 20 Mg Tablet 1 Tab PO DAILY Vitamin D2 (Ergocalciferol (Vitamin D2)) 1,250 Mcg Capsule 1,250 Mcg PO QMONTH Vitals/I & O Vital Sign - Last 24 Hours 08/10/20 08/10/20 08/10/20 08/10/20 19:00 19:45 21:16 22:15 Temp 99.0 99.0 Pulse 72 Resp 18 20 18 B/P (MAP) 108/54 (72) Pulse Ox 95 O2 Delivery Room Air Room Air Room Air Room Air 08/10/20 08/11/20 08/11/20 08/11/20 23:37 03:00 07:00 08:15 Temp 98.9 98.9 98.8 98.9 98.9 98.8 Pulse 77 73 77 Resp 20 18 18 B/P (MAP) 104/39 (60) 120/51 (74) 112/56 (74) Pulse Ox 93 96 98 O2 Delivery Room Air Room Air Room Air Room Air O2 Flow Rate 2.0 08/11/20 08/11/20 11:00 15:00 Temp 98.0 98.5 98.0 98.5 Pulse 78 93 Resp 18 18 B/P (MAP) 110/50 (70) 99/33 (55) Pulse Ox 99 99 O2 Delivery Room Air Room Air Intake and Output 08/10/20 08/10/20 08/11/20 15:00 23:00 07:00 Intake Total 200 ml 150 ml Output Total 950 ml 525 ml Balance 200 ml -800 ml -525 ml Justicifation of Admission Dx: Justifications for Admission: Justification of Admission Dx: N/A FARELA,ANDREA MD Aug 11, 2020 19:15
[2020-08-11] MEDS: ATORVASTATIN CALCIUM 10 MG TABLET. PO SCH (21:46)
[2020-08-11 23:00] VITALS: BP 110/44
[2020-08-12 03:00] VITALS: BP 104/58
[2020-08-12 07:00] VITALS: BP 115/31
[2020-08-12] MEDS: APIXABAN 2.5 MG TABLET. PO SCH (08:40)
[2020-08-12] MEDS: SENNOSIDES/DOCUSATE 8.6/50MG TABLET. PO SCH (08:40)
[2020-08-12] MEDS: PARoxetine 20 MG TABLET PO SCH (08:40)
[2020-08-12 09:23] LABS: BASO % 1 % (0-3); EOS # 0.2 x10^3/uL (0.0-0.7); EOS % 4 % (0-3); HEMATOCRIT 29.4 % (36.0-47.0); HEMOGLOBIN 9.7 g/dL (12.0-15.5); LYMPH # 1.1 x10^3/uL (1.0-4.8); LYMPH % 24 % (24-48); MEAN CORPUSCULAR HEMOGLOBIN 31 pg (25-35); MEAN CORPUSCULAR HGB CONC 33 g/dL (31-37); MEAN CORPUSCULAR VOLUME 93 fL (79-100); MONO # 0.5 x10^3/uL (0.0-1.1); MONO % 11 % (0-9); NEUT # 2.8 x10^3/uL (1.8-7.7); NEUT % 61 % (31-73); PLATELET COUNT 196 x10^3/uL (140-400); RED BLOOD COUNT 3.18 x10^6/uL (3.50-5.40); RED CELL DISTRIBUTION WIDTH 13.6 % (11.5-14.5); WHITE BLOOD COUNT 4.6 x10^3/uL (4.0-11.0)
[2020-08-12 09:27] LABS: CALCIUM 8.3 mg/dL (8.5-10.1); CREATININE 0.8 mg/dL (0.6-1.0); GFR 70.7; POTASSIUM 3.6 mmol/L (3.5-5.1)
[2020-08-12 11:00] VITALS: BP 81/53
[2020-08-12] MEDS ORDERED: APIX2.5T PO (11:14)
[2020-08-12] MEDS ORDERED: POLY17PO52 PO (11:14)
--- NOTE | 2020-08-12 11:17 | PDOC3 ---
Discharge Summary Visit Information Date of Admission: Aug 08, 2020 Date of Discharge: Aug 12, 2020 Admitting Diagnosis Comment: Fall with right hip fracture Final Diagnosis Problems Medical Problems: (1) Intertrochanteric fracture of right femur Status: Acute Postop day 3 right hip fracture repair after fall with hip fracture Depression, hypertension, breast augmentation, previous tobacco abuse. Brief Hospital Course Allergies Allergies Coded Allergies Type Severity Reaction Last Updated Verified Sulfa (Sulfonamide Antibiotics) Allergy Intermediate Rash 08/08/20 Yes Vital Signs Vital Signs Date Time Temp Pulse Resp B/P (MAP) Pulse Ox O2 Delivery O2 Flow Rate FiO2 08/12/20 11:00 97.6 96 16 81/53 (62) 97 Room Air 97.6 08/12/20 08:00 2.0 Lab Results Laboratory Tests Test 08/11/20 06:45 08/12/20 08:04 White Blood Count 5.9 x10^3/uL (4.0-11.0) 4.6 x10^3/uL (4.0-11.0) Red Blood Count 2.93 x10^6/uL (3.50-5.40) 3.18 x10^6/uL (3.50-5.40) Hemoglobin 9.1 g/dL (12.0-15.5) 9.7 g/dL (12.0-15.5) Hematocrit 27.1 % (36.0-47.0) 29.4 % (36.0-47.0) Mean Corpuscular Volume 92 fL (79-100) 93 fL (79-100) Mean Corpuscular Hemoglobin 31 pg (25-35) 31 pg (25-35) Mean Corpuscular Hemoglobin Concent 34 g/dL (31-37) 33 g/dL (31-37) Red Cell Distribution Width 13.4 % (11.5-14.5) 13.6 % (11.5-14.5) Platelet Count 145 x10^3/uL (140-400) 196 x10^3/uL (140-400) Neutrophils (%) (Auto) 62 % (31-73) 61 % (31-73) Lymphocytes (%) (Auto) 21 % (24-48) 24 % (24-48) Monocytes (%) (Auto) 13 % (0-9) 11 % (0-9) Eosinophils (%) (Auto) 4 % (0-3) 4 % (0-3) Basophils (%) (Auto) 0 % (0-3) 1 % (0-3) Neutrophils # (Auto) 3.6 x10^3/uL (1.8-7.7) 2.8 x10^3/uL (1.8-7.7) Lymphocytes # (Auto) 1.2 x10^3/uL (1.0-4.8) 1.1 x10^3/uL (1.0-4.8) Monocytes # (Auto) 0.7 x10^3/uL (0.0-1.1) 0.5 x10^3/uL (0.0-1.1) Eosinophils # (Auto) 0.2 x10^3/uL (0.0-0.7) 0.2 x10^3/uL (0.0-0.7) Basophils # (Auto) 0.0 x10^3/uL (0.0-0.2) 0.0 x10^3/uL (0.0-0.2) Sodium Level 142 mmol/L (136-145) 143 mmol/L (136-145) Potassium Level 3.9 mmol/L (3.5-5.1) 3.6 mmol/L (3.5-5.1) Chloride Level 106 mmol/L (98-107) 108 mmol/L (98-107) Carbon Dioxide Level 27 mmol/L (21-32) 28 mmol/L (21-32) Anion Gap 9 (6-14) 7 (6-14) Blood Urea Nitrogen 8 mg/dL (7-20) 7 mg/dL (7-20) Creatinine 0.8 mg/dL (0.6-1.0) 0.8 mg/dL (0.6-1.0) Estimated GFR (Cockcroft-Gault) 70.7 70.7 Glucose Level 94 mg/dL (70-99) 102 mg/dL (70-99) Calcium Level 7.9 mg/dL (8.5-10.1) 8.3 mg/dL (8.5-10.1) Laboratory Tests Test 08/12/20 08:04 White Blood Count 4.6 x10^3/uL (4.0-11.0) Red Blood Count 3.18 x10^6/uL (3.50-5.40) Hemoglobin 9.7 g/dL (12.0-15.5) Hematocrit 29.4 % (36.0-47.0) Mean Corpuscular Volume 93 fL (79-100) Mean Corpuscular Hemoglobin 31 pg (25-35) Mean Corpuscular Hemoglobin Concent 33 g/dL (31-37) Red Cell Distribution Width 13.6 % (11.5-14.5) Platelet Count 196 x10^3/uL (140-400) Neutrophils (%) (Auto) 61 % (31-73) Lymphocytes (%) (Auto) 24 % (24-48) Monocytes (%) (Auto) 11 % (0-9) Eosinophils (%) (Auto) 4 % (0-3) Basophils (%) (Auto) 1 % (0-3) Neutrophils # (Auto) 2.8 x10^3/uL (1.8-7.7) Lymphocytes # (Auto) 1.1 x10^3/uL (1.0-4.8) Monocytes # (Auto) 0.5 x10^3/uL (0.0-1.1) Eosinophils # (Auto) 0.2 x10^3/uL (0.0-0.7) Basophils # (Auto) 0.0 x10^3/uL (0.0-0.2) Sodium Level 143 mmol/L (136-145) Potassium Level 3.6 mmol/L (3.5-5.1) Chloride Level 108 mmol/L (98-107) Carbon Dioxide Level 28 mmol/L (21-32) Anion Gap 7 (6-14) Blood Urea Nitrogen 7 mg/dL (7-20) Creatinine 0.8 mg/dL (0.6-1.0) Estimated GFR (Cockcroft-Gault) 70.7 Glucose Level 102 mg/dL (70-99) Calcium Level 8.3 mg/dL (8.5-10.1) Brief Hospital Course HISTORY OF PRESENT ILLNESS: The patient is a pleasant 69-year-old female, who has been visiting from [place]. Basically, she was helping move one of her family members and then tripped on some equipment that was on the floor. She has right hip pain. We did some imaging. She does have a right hip fracture. She has been admitted. We have consulted Orthopedics. She is going to surgery today. 08/11/2020 No acute events reported overnight, case discussed with nursing staff patient in no acute distress no complaints during my visit We will arrange for discharge in the a.m. Physical therapy working on the possible obstacles at home 08/10/2020 Patient seen and examined She has less pain today present Discussed with RN Chart reviewed Patient would like to go home with home health tomorrow if possible? (They are from [place]) 08/09/2020 Patient seen and examined Her right hip has clean dry intact dressing Discussed with RN Chart review Discharge Information Condition at Discharge: Improved Follow Up: Weeks Disposition/Orders: D/C to Home w/ HH Scheduled Apixaban (Eliquis) 2.5 Mg Tablet, 2.5 MG PO BID for dvt prophylaxis for 28 Days, #56 Prescribed by: ELIAS BANKS MD on 08/12/20 1114 Ergocalciferol (Vitamin D2) (Vitamin D2) 1,250 Mcg Capsule, 1,250 MCG PO QMONTH for vitamin D deficiency, (Reported) Entered as Reported by: CLYDE BRADY RN on 08/08/20234 Last Taken: Unknown Dose on 07/13/20 Last Action: New Order on 08/08/20234 by CLYDE BRADY RN Paroxetine Hcl (Paroxetine Hcl) 20 Mg Tablet, 1 TAB PO DAILY for anxiety, #30 Ref 5 (Reported) Entered as Reported by: CLYDE BRADY RN on 08/08/20234 Last Taken: Unknown Dose on 08/07/20 Last Action: Continued on 08/08/20234 by CLYDE BRADY RN Rosuvastatin Calcium (Crestor) 5 Mg Tablet, 0.5 TAB PO DAILY for high cholesterol, #30 Ref 5 (Reported) Entered as Reported by: CLYDE BRADY RN on 08/08/20234 Last Taken: Unknown Dose on 09/07/19 Last Action: Converted on 08/08/20234 by CLYDE BRADY RN Scheduled PRN Polyethylene Glycol 3350 (Polyethylene Glycol 3350) 17 Gm Powd.pack, 17 GM PO PRN DAILY PRN for CONSTIPATION for 7 Days, #14 Prescribed by: ELIAS BANKS MD on 08/12/20 1114 Justicifation of Admission Dx: Justifications for Admission: Justification of Admission Dx: N/A ELIAS BANKS MD Aug 12, 2020 11:17
--- NOTE | 2020-08-12 12:33 | NUR ---
Pt assessed, received discharge instruction from nursing, scripts given to pt. Family member very excited to leave facility [facility]. Nursing escorted pt to private vehicle to go home. No concerns noted at this time.
== END 2020-08-12 14:08 | disposition home health service (06) | DRG 482 ==
LOC: ER 18:10 → 4 NORTH 18:59
PROVIDERS: ADMIT Internal Medicine; ATTEND Internal Medicine
PROC: 0QS606Z Reposition Right Upper Femur with Intramedullary Internal Fixation Device, Open Approach (ICD-10-PCS; principal; 2020-08-08 08:00)
DX: S72.144A Nondisplaced intertrochanteric fracture of right femur, initial encounter for closed fracture (principal); E78.00 Pure hypercholesterolemia, unspecified; F32.9 Major depressive disorder, single episode, unspecified; I10 Essential (primary) hypertension; Z83.3 Family history of diabetes mellitus; Z87.891 Personal history of nicotine dependence; Z88.2 Allergy status to sulfonamides; W01.0XXA Fall on same level from slipping, tripping and stumbling without subsequent striking against object, initial encounter; Y93.89 Activity, other specified; Y92.89 Other specified places as the place of occurrence of the external cause; Y99.8 Other external cause status; Z20.822 Contact with and (suspected) exposure to COVID-19
CPT/HCPCS: 36415; 71045; 73502; 73562; 76000; 80048; 80053; 82553; 83735; 84484; 85014; 85018; 85025; 85610; 85730; 87426; 93005; C1713; C1887; J0690; J1100; J2405; J2704; J3010; J3490; J7120; U0003; 97110-GP; 97116-GP; 97530-GP; 97535-GO; 99285-25; G0378